=== PATIENT | female | born 1960 ===

== ENCOUNTER 2017-04-09 09:33 | Emergency (ER) | payer OTHER ==
[2017-04-09 10:04] VITALS: BP 122/60
--- NOTE | 2017-04-09 10:44 | UC ---
Complaint Female HPI - HPI Summary HPI Summary: ONSET YESTERDAY AFTERNOON OF DYSURIA, FREQUENCY, URGENCY AND LOW ABD PAIN. NO FEVER OR BACK PAIN. MILD NAUSEA. - History Of Current Complaint Chief Complaint: UCGU Stated Complaint: URINARY ISSUE Time Seen by Provider: 04/09/17 10:22 Hx Obtained From: Patient Onset/Duration: Gradual Onset, Lasting Hours, Still Present Timing: Constant Severity Initially: Moderate Severity Currently: Moderate Pain Intensity: 4 Pain Scale Used: 0-10 Numeric Character: Burning Aggravating Factor(s): Urination Alleviating Factor(s): Nothing Associated Signs And Symptoms: Positive: Nausea. Negative: Fever, Back Pain, Vaginal Bleeding/Discharge, Vaginal Discharge, Vomiting(# Of Episodes =), Genital Swelling, Genital Blisters - Allergies/Home Medications Allergies/Adverse Reactions: Allergies Allergy/AdvReac Type Severity Reaction Status Date / Time Bees Allergy Swelling Uncoded 04/09/17 09:50 PMH/Surg Hx/FS Hx/Imm Hx Respiratory History: Asthma - Surgical History Surgical History: Yes Surgery Procedure, Year, and Place: Tubal ligation, C Section, Tonsillectomy, Pilonidal cyst removal - Family History Known Family History: Positive: Unknown - Social History Alcohol Use: Daily Alcohol Amount: 1 drink per night Substance Use Type: None Smoking Status (MU): Former Smoker Type: Cigarettes Length of Time of Smoking/Using Tobacco: 40 years Have You Smoked in the Last Year: Yes When Did the Patient Quit Smoking/Using Tobacco: July 2013 Review of Systems Constitutional: Negative Respiratory: Negative Cardiovascular: Negative Gastrointestinal: Nausea Genitourinary: Dysuria, Frequency, Urgency All Other Systems Reviewed And Are Negative: Yes Physical Exam Triage Information Reviewed: Yes Appearance: Well-Appearing, No Pain Distress, Well-Nourished Vital Signs: Initial Vital Signs Temp 98.9 F 04/09/17 09:50 Pulse 82 04/09/17 09:50 Resp 16 04/09/17 09:50 BP 122/60 04/09/17 09:50 Pulse Ox 100 04/09/17 09:50 Vital Signs Reviewed: Yes Eyes: Positive: Conjunctiva Clear ENT: Positive: Hearing grossly normal Neck: Positive: Supple Respiratory: Positive: No respiratory distress, No accessory muscle use Cardiovascular: Positive: Pulses Normal Abdomen Description: Positive: Soft, Other: - SUPRAPUBIC TTP. Negative: CVA Tenderness (R), CVA Tenderness (L), Distended, Guarding Musculoskeletal: Positive: No Edema Neurological: Positive: Alert Psychological: Positive: Age Appropriate Behavior Skin: Negative: rashes Diagnostics - Laboratory Diagnostic Studies Completed/Ordered: URINE DIP SP. GR. 1.010, 2+ BLOOD, 1+ LEUKS, POS NITRITES Complaint Female Dx - Differential Dx/Diagnosis Provider Diagnoses: UTI Discharge - Discharge Plan Condition: Stable Disposition: HOME Prescriptions: Sulfamethox/Trimethoprim DS* [Bactrim DS 800/160 TAB*] 1 tab PO BID #10 tab Patient Education Materials: Urinary Tract Infection in Women (ED) Referrals: Yareli Lind MD [Primary Care Provider] - If Needed
== END 2017-04-09 10:46 | disposition home or self-care (01) ==
LOC: UCEAST 09:33
DX: N39.0 Urinary tract infection, site not specified (principal); B96.20 Unspecified Escherichia coli [E. coli] as the cause of diseases classified elsewhere; R11.0 Nausea; J45.909 Unspecified asthma, uncomplicated; Z91.030 Bee allergy status; Z87.891 Personal history of nicotine dependence
CPT/HCPCS: 81003; 87077; 87086; 87186; 99212; G0463